=== PATIENT | female | born 1940 | race Caucasian/White ===

== ENCOUNTER → 2017-07-13 | Outpatient (CLI) | payer MEDICARE, BC ==
[~2017-07-13] MED LIST: ADVAIR 2501 DISK W/D PO; ASPIRIN81 MG PO; CLARITIN10 M2 PO; NORVASC PO; PROAIR RESPICL90 MCG INH
--- NOTE | ~2017-07-13 | US128 ---
[id number] [facility] [address]. [place], [place] [address] [id number] O MR#: [id number] Acc #: [id number] NAME: RYNE ARRINGTON : 1940 SEX: F STUDY DATE/TIME: 07/13/2017 13:15 UNIT: CGUS ROOM: STUDY DESCRIPTION: Thyroid Attending Physician: Jose R Mariscal M.D. Referring Physician: Jose R Mariscal M.D. Ordering Physician: Jose R Mariscal M.D. Primary Care Physician: Jose R Mariscal M.D. MEDICAL IMAGING REPORT This report is preliminary unless electronic signature is present EXAMINATION Thyroid ultrasound date 07/13/2017 HISTORY Right thyroid nodules seen on an MRI performed at [facility]. Patient denies pain or discomfort or difficulty swallowing. COMPARISON There is no previous thyroid imaging study at this institution for comparison. FINDINGS The right thyroid lobe measures 4.4 x 2.1 x 2.6 cm. Isthmus measures 5 mm thickness. The left thyroid lobe measures 1.6 x 4.7 x 1.8 cm. There is a multinodular appearance of the thyroid gland. The background thyroid parenchyma is heterogeneous. There is a large complex cystic nodule within the right icm-kr-hgwoz thyroid pole containing thick internal septations and internal nodularity. Internal nodular component demonstrates color flow. This lesion measures 2.5 x 2.1 x 2.5 cm. Within the left thyroid lobe, a solid iso- to hypoechoic nodule in the upper pole measures 1.0 x 0.7 x 1.5 cm. It demonstrates increased internal vascularity on color Doppler imaging. A cyst within the mid thyroid pole measures 1.1 x 1.4 x 1.1 cm. A solid hypoechoic nodule within the lower pole measures 1.3 x 1.6 x 1.1 cm and demonstrates increased internal vascularity on color Doppler imaging. IMPRESSION 1. Enlarged, heterogeneous, multinodular thyroid gland. Dominant mixed cystic-solid nodule is located in the right rux-rl-omrkc thyroid pole measuring nearly 2.5 cm. It contains thick septations and internal nodularity. Ultrasound-guided fine needle aspiration is recommended with attention to the solid nodular component. 2. Dominant solid nodule within the left lower thyroid pole measures 1.6 cm and is hypervascular. Ultrasound-guided fine needle aspiration is recommended of this nodule. Dictated by... Rosie Comer M.D. THIS IS AN ELECTRONICALLY VERIFIED REPORT Rosie Comer M.D. at 07/18/2017 3:27 PM KIMBERLY/gricel TD: 07/14/2017 12:11 JOB #: [id number] MEDICAL IMAGING REPORT Page 1 of 1 COPY
== END | disposition home or self-care (01) ==
LOC: CGUS 12:53
DX: E04.1 Nontoxic single thyroid nodule (principal); E04.2 Nontoxic multinodular goiter
CPT/HCPCS: 76536

== ENCOUNTER → 2017-08-01 | Outpatient (CLI) | payer MEDICARE, BC ==
--- NOTE | ~2017-08-01 | XA230 ---
[facility] A Service of [facility] RADIOLOGY TEXT RESULTS PATIENT: RYNE ARRINGTON LOCATION: [facility] : [birth year] UNIT #: [id number] AGE: [address]: Jose R Mariscal MD SEX: F ORDER DR: [id number] [facility] [address] [place], [place] [address] [id number] O MR#: [id number] Acc #: [id number] NAME: RYNE ARRINGTON. : 1940 SEX: F STUDY DATE/TIME: 08/01/2017 14:18 UNIT: [facility] ROOM: STUDY DESCRIPTION: XA FNA Attending Physician: Jose R Mariscal M.D. Referring Physician: Jose R Mariscal M.D. Ordering Physician: Jose R Mariscal M.D. Primary Care Physician: Jose R Mariscal M.D. MEDICAL IMAGING REPORT This report is preliminary unless electronic signature is present EXAM Thyroid needle aspiration. DATE 08/01/2017 CLINICAL HISTORY Multiple thyroid nodules. PROCEDURE Informed consent was obtained. Initially, on the right, skin site was selected with ultrasound guidance and, after alcohol preparation, a 25-gauge needle was used to aspirate fluid from a 2.6 cm right lobe mixed cystic and solid lesion. After fluid aspiration, then needle aspiration of the residual solid component was performed with real-time ultrasound guidance without complication. The diagnostic ultrasound had suggested the presence of a nodule in the left lobe up to 1.6 cm in size, but real-time ultrasound performed by me personally showed no nodules in the left lobe more than 11 mm in maximal dimension and no additional needle aspiration was performed. IMPRESSION 1. Successful needle aspiration of a right lobe mixed cystic and solid nodule. Initially, the cystic portion was aspirated followed by needle aspiration of the remaining solid portion of the nodule. 2. Ultrasound of the left lobe by me personally revealed no left lobe nodules convincingly more than 11 mm in size and no left lobe needle aspiration was performed at this time. Dictated by... Luca Sevilla M.D. [facility] A Service of [facility] RADIOLOGY TEXT RESULTS PATIENT: RYNE ARRINGTON LOCATION: [facility] #: [id number] : [birth year] UNIT #: [id number] AGE: [address]: Jose R Mariscal MD SEX: F ORDER DR: THIS IS AN ELECTRONICALLY VERIFIED REPORT Luca Sevilla M.D. at 08/03/2017 3:59 PM TEV/bd TD: 08/02/2017 16:15 JOB #: [id number] MEDICAL IMAGING REPORT Page 1 of 1 COPY
== END | disposition home or self-care (01) ==
LOC: CIVR 13:11
DX: E04.2 Nontoxic multinodular goiter (principal)
CPT/HCPCS: 76942; 88173; 88305